=== PATIENT | female | born 1985 | race Caucasian/White ===

== ENCOUNTER 2020-01-28 08:48 | Emergency (ER) | payer OTHER, SELFPAY ==
[2020-01-28 09:00] VITALS: BP 183/131; PULSE 119; RESP 16; TEMP 36.1; O2SAT 100
[2020-01-28] MEDS: IBUPROFEN 600 MG TABLET PO (10:17)
[2020-01-28] MEDS: LORazepam (*CRX) 1 MG TABLET PO (10:17)
--- NOTE | 2020-01-28 10:25 | ED.GENADULT ---
HPI - General Adult General Chief complaint: Skin/Abscess/Foreign Body Stated complaint: spider bite Time Seen by Provider: 01/28/20 09:05 Source: patient and family Mode of arrival: ambulatory Limitations: no limitations History of Present Illness HPI narrative: Patient is a 34-year-old female who presents injection abscess to the right calf has been there for the last several days notes aching pain worse with touch and activity also notes some nausea but denies fever or emesis patient has not taken anything for her symptoms presents per private vehicle in no distress does not appear to be uncomfortable Related Data Allergies Allergy/AdvReac Type Severity Reaction Status Date / Time No Known Allergies Allergy Mild Unverified 12/07/12 10:46 Review of Systems Review of Systems: All systems reviewed & are unremarkable except as noted in HPI and below PMFSH Social History Social History (Updated 01/28/20 @ 10:28 by Sravan Ann PA-C) Substance use type: amphetamines Exam Narrative: Exam Narrative: GENERAL: Well-appearing, well-nourished, and in no acute distress. HEAD: Normocephalic, atraumatic. EYES: PERRLA and EOMI. ENT: Nares clear, no rhinorrhea or epistaxis. Mucous membranes moist. CHEST: Clear to auscultation. No respiratory distress. No wheezes rales or rhonchi HEART: Regular rate and rhythm. No murmur heard. Normal peripheral pulses. ABDOMEN: Soft, nontender, nondistended EXTREMITIES: Normal range of motion. No edema. Patient with red tender swollen fluctuant area involving the right calf with approximately 8 cm in diameter erythematous changes surrounding no lymphangitic streaking no drainage SKIN: Warm, dry, no rash. NEURO: No focal deficits. Alert and oriented x3. Neurovascularly intact. Capillary refill less than 2 seconds PSYCH: Normal mood and affect. Course Course Emergency Course: Patient with I&D of the wound in the emergency department afebrile nontoxic-appearing no distress had wound culture obtained was given fluids IV antibiotics and medications. Patient agrees to follow with primary care provided with reasons to return Vital Signs Vital signs: Vital Signs Temperature 97.0 F L 01/28/20 09:00 Pulse Rate 119 H 01/28/20 09:00 Respiratory Rate 16 01/28/20 09:00 Blood Pressure 183/131 H 01/28/20 09:00 Pulse Oximetry 100 01/28/20 09:00 Temperature 97.0 F L 01/28/20 09:00 Pulse Rate 99 01/28/20 11:52 Respiratory Rate 18 01/28/20 11:52 Blood Pressure 165/113 H 01/28/20 11:52 Pulse Oximetry 100 01/28/20 11:52 Procedures Abscess I/D lower extremity: Date of Incision: 01/28/20 Time of Incision: 10:30 Side (if applicable): right Local Anesthetic: lidocaine 1% Technique: incised with #11 blade Amount of fluid expressed (mL): 20 Irrigation: Yes Packing used?: iodoform I&D Results: Pus and Blood Complications: pain Medical Decision Making MDM Narrative Medical decision making narrative: Patient with I&D of abscess in the emergency department felt appropriate for outpatient reevaluation aware of case findings treatment plan diagnosis agreeing to follow with primary care afebrile nontoxic-appearing no distress felt appropriate for outpatient reevaluation Vital Signs Vital Signs: Vital Signs Temperature 97.0 F L 01/28/20 09:00 Pulse Rate 119 H 01/28/20 09:00 Respiratory Rate 16 01/28/20 09:00 Blood Pressure 183/131 H 01/28/20 09:00 Pulse Oximetry 100 01/28/20 09:00 Temperature 97.0 F L 01/28/20 09:00 Pulse Rate 99 01/28/20 11:52 Respiratory Rate 18 01/28/20 11:52 Blood Pressure 165/113 H 01/28/20 11:52 Pulse Oximetry 100 01/28/20 11:52 Lab Data Result diagrams: 01/28/20 11:30 01/28/20 11:30 Labs: Lab Results 01/28/20 01/28/20 Range/Units 11:30 11:30 WBC 10.2 H (4.5-10.0) K/mm3 RBC 5.44 H (4.2-5.4) M/mm3 Hgb 15.3
[2020-01-28] MEDS: SODIUM CHLORIDE 0.9% IV 1,000 ML 999 ML IV CONT (11:30)
[2020-01-28 11:41] LABS: Basophils Percent Auto 0.3 % (0.2-1.2); Eosinophils Absolute Auto 0.1 K/mm3 (0-0.3); Eosinophils Percent Auto 1.2 % (0-4.4); Hematocrit 46.9 % (37.0-47.0); Hemoglobin 15.3 g/dL (12.0-15.0); Immature Granulocyte Absolute 0.04 K/mm3 (0.00-0.031); Immature Granulocyte Percent A 0.4 % (0-0.5); Lymphocytes Absolute Auto 1.26 K/mm3 (0.9-3.2); Lymphocytes Percent Auto 12.3 % (18.3-44.2); Mean Corpuscular HGB Conc 32.6 g/dl (32-36); Mean Corpuscular Hemoglobin 28.1 pg (26-34); Mean Corpuscular Volume 86.2 fl (80-100); Monocytes Absolute Auto 0.7 K/mm3 (0.1-0.6); Monocytes Percent Auto 6.5 % (2.6-8.5); Neutrophils Absolute Auto 8.1 K/mm3 (1.3-6.7); Neutrophils Percent Auto 79.3 % (45.5-73.1); Platelet Count Result 241 k/mm3 (150-375); Red Blood Count 5.44 M/mm3 (4.2-5.4); Red Cell Distribution Width 15.5 % (11.5-14.5); White Blood Count 10.2 K/mm3 (4.5-10.0)
[2020-01-28] MEDS: ceFAZolin 2 GM/D5W 50 ML 2 GM/50 ML BAG IVPB (11:51)
[2020-01-28 11:52] VITALS: BP 165/113; PULSE 99; RESP 18; O2SAT 100
[2020-01-28 11:54] LABS: Anion Gap 3 mmol/L (8-16); Blood Urea Nitrogen 9 mg/dL (7-17); Calcium 8.5 mg/dL (8.4-10.2); Carbon Dioxide 31 mmol/L (22-30); Chloride 102 mmol/L (98-107); Estimated CRCL calculation 108 ml/min; Estimated Glomerular Filt Rate > 60; Glucose 95 mg/dL (65-105); Potassium 4.2 mmol/L (3.4-5.0); Sodium 136 mmol/L (137-145)
[2020-01-28 13:24] VITALS: BP 116/82; PULSE 58; RESP 14; O2SAT 100
== END 2020-01-28 13:25 | disposition home or self-care (01) ==
PROVIDERS: Emergency Medicine Emergency Medical Services; Emergency Provider Emergency Medicine; PCP Family Medicine
DX: L02.416 Cutaneous abscess of left lower limb (principal)
CPT/HCPCS: 10061; 36415; 80048; 85025; 87070; 87075; 87205; 96365; 99284; A9270; J0690; J7030